=== PATIENT | male | born 1980 | race Caucasian/White ===

== ENCOUNTER 2019-01-16 07:42 | Outpatient (CLI) | payer OTHER ==
[2019-01-16] MEDS ORDERED: GADOBUTROL 10 MMOL/10 ML VIAL ONE (07:54)
[2019-01-16] MEDS ORDERED: GADOBUTROL 10 MMOL/10 ML VIAL IVP ONE (08:36)
--- NOTE | 2019-01-17 09:02 | MRI Report ---
Reason: TINNITUS, RIGHT EAR, OTHER PERIPHERAL VERTIGO, RIG Procedure Date: 01/16/2019 Accession Number: [id number] / [id number] Procedure: MRI - IACS W/WO CPT Code: FULL RESULT: EXAM: MRI BRAIN AND INTERNAL AUDITORY CANAL (IAC),WITHOUT AND WITH CONTRAST. EXAM DATE: 01/16/2019 08:49 AM. CLINICAL HISTORY: Tinnitus, right ear, other peripheral vertigo, right. Hearing loss. COMPARISON: None. TECHNIQUE: Multiplanar, multisequence T1-weighted and fluid-sensitive MRI sequences of the brain and IACs were performed. Other: None. IV Contrast: 10 cc Gadavist. FINDINGS: Brain Volume: Normal for age. Parenchyma/Dura: No acute hemorrhage, mass, or acute infarct.There are multiple foci of peripheral cortical and subcortical encephalomalacia seen scattered in the cerebral hemispheres. This is greater on the left. Involvement of inferior and posterolateral left temporal lobe and high right parietal lobe parenchyma is evident. Scattered associated hypointense magnetic susceptibility is seen consistent with old blood breakdown products. There are a few scattered punctate foci of peripheral white matter T2/FLAIR bright signal seen in the cerebral hemispheres. No abnormal parenchymal enhancement. Internal Auditory Canals (IACs): Normal. No cranial nerve lesion or inflammatory process identified. The inner ear structure are symmetric and unremarkable. Ventricles/Cisterns: The ventricles, sulci, and cisterns are unremarkable. No abnormal extra-axial fluid collection or hemorrhage. Orbits: Symmetric and unremarkable. Sella Turcica: The pituitary gland, cavernous sinuses, suprasellar cistern and optic chiasm are unremarkable. Vasculature: Normal signal flow void is seen in the major arterial structures at the skull base. The dural sinuses are patent and enhance normally. Sinuses: No acute sinus disease. Bones: No focal pathologic appearing marrow signal changes. Postoperative change from left posterior craniotomy is noted. Other: None. IMPRESSION: 1. No acute intracranial abnormality. No acute infarct, mass, hemorrhage, or abnormal enhancement. 2. Multiple peripheral foci of cortical/subcortical encephalomalacia and old blood breakdown products seen peripherally in the cerebral hemispheres. This is greater on the left involving multiple foci in the left temporal lobe as well as high right parietal lobe. Findings suggest sequela of old trauma. 3. Negative MRI of the IAC and CPA cisterns. The inner ear structures are symmetric. 4. There are several scattered peripheral foci of white matter T2/FLAIR bright signal seen in the cerebral hemispheres. This is nonspecific. This can be seen in patients with migraine headache or secondary to small vessel ischemia. [facility]
== END 2019-01-16 07:43 | disposition home or self-care (01) ==
LOC: DI 07:42
PROVIDERS: ATTEND Otolaryngology
DX: G93.89 Other specified disorders of brain (principal); H81.391 Other peripheral vertigo, right ear; H93.11 Tinnitus, right ear
CPT/HCPCS: 70543; A9585